=== PATIENT | male | born 1975 | race Caucasian/White ===

== ENCOUNTER → 2020-04-08 09:32 | Outpatient (CLI) | payer BC, SELFPAY ==
--- NOTE | 2020-04-08 09:39 | RAD_ITS ---
CLINICAL HISTORY: Male, 45 years old. Left hip pain. PROCEDURE: ARTHROGRAM - LEFT HIP CONSENT: The procedure as well as the benefits and possible complications including infection and bleeding were explained to the patient. Informed consent was obtained. FLUOROSCOPY TIME (if supplied): (18 seconds) minutes/seconds. Injection Information: 10 cc of dilute MRI contrast. Number of images obtained: 1 TECHNIQUE: (All elements of maximal sterile barrier technique followed, including US elements as applicable) The patient was in the supine position. The overlying skin was prepped and draped in the usual sterile fashion. Following local anesthetic application and under direct fluoroscopic guidance, a 22-gauge spinal needle was placed into the left hip joint. 2 cc of [id number]-300 was injected for confirmation. Following this, 10 cc of dilute MRI contrast was injected. The patient tolerated the procedure well. RAD/Arthrogram Hip IMPRESSION: Successful left hip arthrogram for MRI examination. The patient tolerated the procedure well. Electronically Signed: Brian Lilly, at 10:46 EDT , Service support ,
--- NOTE | 2020-04-08 10:29 | MRI_ITS ---
STUDY: MRI LEFT HIP ARTHROGRAM REASON FOR EXAM: Male, 45 years old. Pain. TECHNIQUE: Standardized fat and water weighted pulse sequences were obtained in all 3 orthogonal planes following the intra-articular administration of contrast. COMPARISON: None. FINDINGS: There is moderate articular narrowing of the hip joint, with greater than 50% loss of the hyaline cartilage. There is lateral osteoarthritic spurring of the acetabular rim with edema and cyst or cortical erosion of the weight bearing articular surface of the acetabulum. Tears of the anterior superior and anterior labrum, series 5 images 16/30 through . There is mild lateral osteoarthritic spurring of the femoral head. Normal femoral neck and intratrochanteric region. There is no demonstrated fracture. Normal gluteus minimus, medius and iliopsoas tendons and distal insertions. There is no trochanteric, iliopsoas or iliopectineal bursitis. Normal superior and inferior pubic rami. Normal pubic symphysis. Normal ischial tuberosity. Normal origin of the hamstring tendons. Normal visualized iliac wing, sacroiliac joint, and sacral ala. Normal visualized soft tissue structures of the pelvis. MRI/Lower Ext/Jt Only/W Contrast IMPRESSION: Degenerative changes with tear of the acetabular labrum. Electronically Signed: Bhupinder Urias MD at 12:05 EDT , Service support ,
== END ==
LOC: RAD 09:37
PROVIDERS: PCP Family Medicine; Referring Provider Physician Assistant Surgical; Visit Provider Physician Assistant Surgical
DX: M25.852 Other specified joint disorders, left hip (principal)
CPT/HCPCS: 27093; 73525; 73722; A9575; Q9967

== ENCOUNTER → 2022-07-17 | Outpatient (CLI) | payer BC, SELFPAY ==
--- NOTE | 2022-07-17 15:55 | RAD_ITS ---
STUDY: X-RAY - LUMBAR SPINE REASON FOR EXAM: Male, 47 years old. DEGENERATION -- AP LAT TECHNIQUE: XR Spine Lumbar 2 or 3 Views COMPARISON: None FINDINGS: Normal lumbar lordosis. There is no substantial scoliosis. There is a normal alignment of the vertebrae. There is multilevel endplate spondylosis of the lumbar vertebrae. There is multi-level degenerative disc disease with multi-level disc space narrowing. The soft tissue structures are unremarkable. RAD/Lumbar Spine 2 or 3 Views IMPRESSION: Degenerative changes of the spine, as detailed above. Electronically Signed: Jaiden Borja MD at 19:27 EST ,
== END | disposition home or self-care (01) ==
LOC: RAD 15:49
PROVIDERS: PCP Nurse Practitioner Family; Referring Provider Anesthesiology Pain Medicine; Visit Provider Anesthesiology Pain Medicine
DX: M51.37 Other intervertebral disc degeneration, lumbosacral region (principal); M51.26 Other intervertebral disc displacement, lumbar region
CPT/HCPCS: 72100

== ENCOUNTER → 2022-10-13 | Outpatient (CLI) | payer BC, SELFPAY ==
--- NOTE | 2022-10-13 06:35 | MRI_ITS ---
INDICATION: Low back pain. Pain in the right leg. EXAMINATION: MRI - MR Spine Lumbar W/O Contrast TECHNIQUE: Multiplanar and multisequence MR images of the lumbar spine. IV Contrast Dosage and Agent: None. COMPARISON: Radiographs 07/17/2022. FINDINGS: No fracture or acute or concerning osseous finding. Mild right scoliosis centered at L2 similar to previous. Sagittal alignment anatomic. Conus terminates at the level of the mid T12 vertebral body with normal contour and signal. Normal arborization of the cauda equina. At L1-2, small diffuse disc bulge and mild bilateral facet degeneration causes only mild narrowing of the spinal canal and foramina with no evidence of nerve root impingement. At L2-3, small central disc protrusion and mild bilateral facet degeneration causes no significant narrowing. At L3-4, diffuse disc bulge with small central protrusion and moderate bilateral facet degeneration causes only mild narrowing of the spinal canal and foramina. At L4-5, diffuse disc bulge with small central/left paracentral protrusion with underlying annular tear combines with mild bilateral facet degeneration to cause moderate narrowing of the bilateral subarticular zones. Disc abuts but does not displace the bilateral L5 nerve roots in the subarticular zones. Only mild foraminal narrowing. At L5-S1, broad-based disc bulge mildly narrows the spinal canal, abutting but not displacing the traversing S1 nerve roots in the subarticular zones. Disc and osteophyte extend into a moderately narrow the right foramen, abutting but not compressing the exiting right L5 nerve root. Only mild left foraminal and spinal canal narrowing. The paraspinal soft tissues are unremarkable. MRI/Spine Lumbar (Routine) IMPRESSION: Degenerative changes most prominent at L4-5 and L5-S1. Disc abuts but does not compress the bilateral L5 nerve roots in the subarticular zones of L4-5, and the bilateral S1 nerve roots in the subarticular zones of L5-S1. Disc and osteophyte also abuts but do not compress the exiting right L5 nerve root in the right L5-S1 foramen. Electronically Signed: Osman Lara MD at 8:04 EST Reading Location ID and State: 1954 [place] Tel , Service support ,
== END | disposition home or self-care (01) ==
LOC: MRI 07:55
PROVIDERS: PCP Nurse Practitioner Family; Referring Provider Anesthesiology Pain Medicine; Visit Provider Anesthesiology Pain Medicine
DX: M54.16 Radiculopathy, lumbar region (principal)
CPT/HCPCS: 72148

== ENCOUNTER → 2023-09-21 | Outpatient (CLI) | payer BC, SELFPAY ==
--- OUTSIDE RECORDS SUMMARY | 2023-09-21 07:14 | XMS RPT_ITS | CCD ---
Author Name Unknown Address [id number] [place] [address] Organization [facility] Care Team Providers Care Fifth Hand Name Role Phone JOSE GAMBINO Unavailable Unavailable JOSE GAMBINO Unavailable Unavailable PHYSICIAN, NONE Unavailable Unavailable JOSE GAMBINO Unavailable Unavailable JOSE GAMBINO Unavailable Unavailable PHYSICIAN, NONE Unavailable Unavailable Alexandro Garcia MD Unavailable RENETTA PETERSEN Primary Care Physician RENETTA PETERSEN Primary Care Physician RENETTA PETERSEN Primary Care Physician Medications Current Medications Medication Drug Class(es) Dates Sig (Normalized) Sig (Original) cyclobenzaprine hydrochloride 10 mg oral tablet (1 source) Muscle Relaxant Start: 07-14-2021 End: 07-21-2021 cyclobenzaprine 10 mg oral tablet Dose : 10 mg = 1 tab(s), Oral, TID, X 7 day(s), # 21 tab(s), 0 Refill(s), 07/21/21 16:46:00 EST, [facility]acy: [facility] Rib pain on left side, 188, cm, 07/14/21 16:12:00 EDT, Height, kg, 07/14/21 16:12:00 EDT, Dosing Weight Start Date: 07/14/21 Stop Date: 07/21/21 Status: Ordered gabapentin 300 mg oral capsule (3 sources) Anti-epileptic Agent Start: 03-06-2022 End: 09-02-2022 gabapentin 300 mg oral capsule Dose : 300 mg = 1 cap(s), Oral, TID, Patient to take 1 capsule at night for 7 days then twice a day for 7 days then increase to 3 times a day if tolerated, # 90 cap(s), 5 Refill(s), Pharmacy: [id number] Costochondritis, 188, cm, 03/06/22... Start Date: 03/06/22 Stop Date: 09/02/22 Status: Ordered ibuprofen 200 mg oral capsule (9 sources) Nonsteroidal Anti-inflammatory Drug Start: 12-08-2020 ibuprofen 200 mg oral capsule Dose : 400 mg = 2 cap(s), Oral, q4h, PRN as needed for pain, # 120 cap(s), 0 Refill(s) Start Date: 12/08/20 Status: Ordered lisinopril 20 mg oral tablet (4 sources) Angiotensin Converting Enzyme Inhibitor Start: 12-04-2021 lisinopril 20 mg oral tablet Dose : 20 mg = 1 tab(s), Oral, qDay, # 30 tab(s), 1 Refill(s), Pharmacy: [id number] [place] [address]., 188, cm, 11/23/21 14:36:00 EDT, Height, kg, 11/23/21 14:36:00 EDT, Dosing Weight Start Date: 12/04/21 Status: Ordered Problems Active Problems Problem Classification Problem Date Documented Da te Episodic/Chronic Abdominal hernia (10 sources) Left inguinal hernia ; Translations: [Left inguinal hernia (disorder)] Onset: 03-13-2017 03-13-2017 Episodic Abdominal pain (13 sources) Left upper quadrant pain 08-01-2021 Episodic Cardiac dysrhythmias (8 sources) Tachycardia 08-01-2021 Episodic Conditions associated with dizziness or vertigo (9 sources) Vertigo 12-08-2020 Episodic Essential hypertension (4 sources) Hypertensive disorder 08-21-2021 Chronic Headache; including migraine (9 sources) Headache 12-08-2020 Episodic Nonspecific chest pain (8 sources) Chest discomfort 08-01-2021 Episodic Osteoarthritis (1 source) Unilateral primary osteoarthritis, left hip; Translations: [Unilateral primary osteoarthritis, left hip] Onset: 04-22-2020 04-22-2020 Chronic Other bone disease and musculoskeletal deformities (3 sources) Costal chondritis 02-13-2022 Episodic Other injuries and conditions due to external causes (9 sources) Injury of shoulder region 01-16-2016 Episodic Other lower respiratory disease (8 sources) Dyspnea 08-01-2021 Episodic Other lower respiratory disease (3 sources) Rib pain 02-13-2022 Episodic Other nervous system disorders (3 sources) 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 Residual codes; unclassified (9 sources) Chronic back pain 02-09-2020 Episodic Spondylosis; intervertebral disc disorders; other back problems (11 sources) Prolapsed lumbar intervertebral disc; Translations: [Degeneration of lumbar intervertebral disc] Onset: 01-01-2019 01-01-2019 Chronic Past or Other Problems Problem Classification Problem Date Documented Da te Episodic/Chronic Spondylosis; intervertebral disc disorders; other back problems (2 sources) Spinal stenosis of lumbar region; Translations: [Low back pain] Onset: 01-01-2019 01-01-2019 Episodic Unclassified (1 source) Problem Results Test Name Value Interpretation Reference Range Facil ity Vital Signs Date Time Vital Sign Value Performing Clinician Facility 03-20-2022 07:34-0400 Diastolic blood pressure 100 mm[Hg] TREVOR NARVAEZ MD [facility] 03-20-2022 07:34-0400 Heart rate 85 /min TREVOR NARVAEZ MD [facility] 03-20-2022 07:34-0400 Respiratory rate 16 /min TREVOR NARVAEZ MD [facility] 03-20-2022 07:34-0400 Systolic blood pressure 136 mm[Hg] TREVOR NARVAEZ MD [facility] 03-20-2022 07:17-0400 Body height 188 cm TREVOR NARVAEZ MD [facility] 03-20-2022 07:17-0400 Body weight 100 kg TREVOR NARVAEZ MD [facility] 03-20-2022 07:15-0400 Body temperature 97.7 [degF] TREVOR NARVAEZ MD [facility] 03-20-2022 07:15-0400 Diastolic blood pressure 100 mm[Hg] TREVOR NARVAEZ MD [facility] 03-20-2022 07:15-0400 Heart rate 77 /min TREVOR NARVAEZ MD [facility] 03-20-2022 07:15-0400 Respiratory rate 16 /min TREVOR NARVAEZ MD [facility] 03-20-2022 07:15-0400 Systolic blood pressure 124 mm[Hg] TREVOR NARVAEZ MD [facility] 03-20-2022 07:10-0400 Body height 188 cm TREVOR NARVAEZ MD [facility] 03-20-2022 07:10-0400 Body temperature 98.06 [degF] TREVOR NARVAEZ MD [facility] 03-20-2022 07:10-0400 Body weight 103.5 kg TREVOR NARVAEZ MD [facility] 03-20-2022 07:10-0400 Diastolic blood pressure 71 mm[Hg] TREVOR NARVAEZ MD [facility] 03-20-2022 07:10-0400 Heart rate 87 /min TREVOR NARVAEZ MD [facility] 03-20-2022 07:10-0400 Respiratory rate 16 /min TREVOR NARVAEZ MD [facility] 03-20-2022 07:10-0400 Systolic blood pressure 101 mm[Hg] TREVOR NARVAEZ MD [facility] NEGATED: Cinthya [id number] 13:53-0400 BMI (Body Mass Index) 28.35 kg/m2 [facility]: NEGATED: Highlighted [id number] 13:53-0400 Body weight 99.79 kg [facility] Work Phone: NEGATED: Highlighted [id number] 13:53-0400 Body weight 100 kg [facility] Work Phone: NEGATED: Highlighted [id number] 13:53-0400 Heart rate 2+ [facility] Work Phone: NEGATED: Highlighted [id number] 13:53-0400 Height 187.96 cm [facility] Work Phone: NEGATED: Highlighted [id number] 13:53-0400 Height 188 cm [facility] Work Phone: Encounters Encounter Date Encounter Type Care Provider Facility Start: 04-17-2022 End: 04-17-2022 Patient encounter procedure TREVOR NARVAEZ MD [facility] Start: 03-20-2022 End: 03-20-2022 Minor Procedure TREVOR NARVAEZ MD [facility] Start: 03-06-2022 End: 03-06-2022 Patient encounter procedure TREVOR NARVAEZ MD [facility] Start: 11-10-2021 End: 11-10-2021 Patient encounter procedure SADE AREVALO MD [facility] Start: 08-11-2021 End: 08-11-2021 Patient encounter procedure RENETTA SINGH MOTOR TEACHER[employer]RAZZ[employer] FINISHER [facility] Start: 08-08-2021 End: 08-08-2021 Patient encounter procedure RENETTA SINGH MOTOR TEACHER[employer]ZZ[employer] FINISHER [facility] Start: 08-07-2021 End: 08-07-2021 Patient encounter procedure RENETTA SINGH MOTOR TEACHER[employer] FINISHER [facility] Start: 08-02-2021 End: 08-02-2021 Patient encounter procedure RENETTA SINGH MOTOR TEACHER[employer]RAZZ[employer] FINISHER [facility] Start: 07-14-2021 End: 07-14-2021 Patient encounter procedure LOTTIE CHATTERJEE MOTOR TEACHER[employer]RAZZ[employer] FINISHER [facility] Start: 04-22-2020 End: 04-22-2020 Patient encounter procedure Alexandro Garcia MD Work Phone: [facility] Work Phone: Start: 03-21-2017 Ambulatory JOSE GAMBINO Facility:[facility] Start: 03-13-2017 End: 03-14-2017 [facility] Facility:[facility] [place] Procedures Date Procedure Procedure Detail Performing Clinician Start: 03-20-2022 PM Intercostal Nerve Block - Single SN 1 TREVOR NARVAEZ MD Plan of Treatment Date Care Activity Detail Author Start: 04-22-2020 End: 04-22-2020 Appointment Appointment [facility] Work Phone: Immunizations Immunization Date Immunization Notes Care Provider Fa cilirosalba 01-23-2021 SARS-CoV-2 (COVID-19 ) [id number] vaccine TREVOR NARVAEZ MD [facility] Payers Date Payer Category Payer Private Health Insurance [id number] Social History Date Type Detail Facility Start: 04-22-2020 End: 04-22-2020 Assertion Unknown if ever smoked [facility] Work Phone: Start: 02-09-2020 Never smoked t obacco (finding) [facility] Sex Assigned At Male [facility] Functional Status Date Assessment Result Facility 03-20-2022 Functional Status Awake [facility] Mental Status Date Assessment Result Facility 03-20-2022 Mental Status Orientation Asse ssment Oriented x 4 [facility] Clinical Notes 07-14-2021 to 03-20-2022 RadiologyRadiologyRadiologyRadiologyRadiologyRadiologyRadiologyRadiology Note Date & Type Note Facility 03-20-2022 History and physical note Date of Service 03/20/22 History and Physical Update I have examined the patient; reviewed the History and Physical and there are no changes to the History and Physical unless noted below. Digitally Signed by TREVOR NARVAEZ MD on 03/20/2022 07:31 AM [facility] 11-07-2021 Evaluation + Plan note Future Scheduled TestsNM Hepatobiliary Duct System Imaging 11/07/21XR Ribs 2 Views Left/PA Chest (AO) 07/14/21 [facility] 08-02-2021 Evaluation + Plan note Future Scheduled TestsNM Hepatobiliary Duct System Imaging 08/02/21NM Myocardial Spect Rest/Stress 08/01/21XR Ribs 2 Views Left/PA Chest (AO) 07/14/21 [facility] 07-14-2021 Evaluation + Plan note Future Scheduled TestsXR Ribs 2 Views Left/PA Chest (AO) 07/14/21 [facility] Evaluation + Plan note Future Appointments Appointment Date:07/31/2021 02:05:00 PM Scheduled Provider:CABRERA METZ DO Location:[facility] Appointment Type:PC OV Future Scheduled TestsXR Ribs 2 Views Left/PA Chest (AO) 07/14/21 [facility] Evaluation + Plan note Future Appointments Appointment Date:08/08/2021 08:45:00 AM Scheduled Provider: Location:[facility] Appointment Type:NM Myocardial Spect Rest/Stress (AH/AO) Future Scheduled TestsNM Myocardial Spect Rest/Stress 08/08/21XR Ribs 2 Views Left/PA Chest (AO) 07/14/21 [facility] Evaluation + Plan note Future Appointments Appointment Date:08/09/2021 10:15:00 AM Scheduled Provider:MELANY MORE JR, MD Location: [place] Appointment Type: CHART SNATCHER Future Scheduled TestsXR Ribs 2 Views Left/PA Chest (AO) 07/14/21 [facility] Evaluation + Plan note Future Appointments Appointment Date:08/21/2021 02:15:00 PM Scheduled Provider:RENETTA SINGH Location:[facility] Appointment Type:PC OV Future Scheduled TestsXR Ribs 2 Views Left/PA Chest (AO) 07/14/21 [facility] Evaluation + Plan note Future Appointments Appointment Date:04/18/2022 08:00:00 AM Scheduled Provider:PERNELL REYNAGA APRN-ANJELICA Location:[facility] PM Appointment Type:PM OV Future Scheduled TestsXR Ribs 2 Views Left/PA Chest (AO) 07/14/21 [facility] Hospital course Narrative No data available for this section [facility] Hospital Discharge instructions No data available for this section [facility] Progress note No data available for this section [facility] Summary Purpose Family History No Family History Records FoundThere may be information available, but it has not been provided by the sender.No Family History Records Found Advance Directives No Advanced Directives Records FoundThere may be information available, but it has not been provided by the sender.No Advanced Directives Records Found Chief Complaint Chief Complaint Description Start Date left hip pain Preliminary chief co mplaint data, not yet signed by the author as of Instructions Instruction Description Start Date CompletedPatient advised to follow-up with Primary Care Physician for BMI management. Assessments There may be information available, but it has not been provided by the sender. Review of System There may be information available, but it has not been provided by the sender. History of Present Illness There may be information available, but it has not been provided by the sender. Additional Source Comments (unrecognized sect ion and content) No Status Records FoundNo Status Records Found INFORMATION SOURCE (unrecogn ized section and content) DATE CREATED AUTHOR AUTHOR'S ORGANIZ ATION 04/23/2022 [facility] ([place]) Reason for Visit (unrecogniz ed section and content) Care Team (unrecognized sect ion and content) Care Team Personnel Name: RENETTA SINGH Position: P4 Advanced Practice Nurse Med Service: Active Provider Member Role: Primary Care Physician Address: Address: [address] [place] [address] Care Team Related Persons Name: NONE, Name: TAHMINA CARLISLE Address: [facility] Address: Home [address] [place] [phone] [place] Name: GURINDER CARLISLE Address: [address] [phone] [place] Care Team Personnel Name: RENETTA SINGH Position: P4 Advanced Practice Nurse Med Service: Active Provider Member Role: Primary Care Physician Address: Address: [address] [place] [address] Care Team Related Persons Name: NONE, Name: TAHMINA CARLISLE Address: [facility] Address: Home [address] [place] [phone] [place] Name: GURINDER CARLISLE Address: Home [address] [place] [phone] [place] Care Team Personnel Name: RENETTA SINGHTERRAZZO FINISHER Position: P4 Advanced Practice Nurse Med Service: Active Provider Member Role: Primary Care Physician Address: Address: [address] [facility] [place], [place] [address] Care Team Related Persons Name: NONE, Name: TAHMINA CARLISLE Lizabeth Address: [facility] Address: [address] [phone] Name: GURINDER CARLISLE Address: [address] [phone] FOR RECORDS PERTAINING TO PATIENTS WHO ARE OR HAVE BEEN ENROLLED IN A CHEMICAL DEPENDENCY/SUBSTANCEABUSE PROGRAM, SOME INFORMATION MAY BE OMITTED. This clinical summary was aggregated from multiple sources. Caution should be exercised in using it in the provision of clinical care. This summary normalizes information from multiple sources, and as a consequence, information in this document may materially change the coding, format and clinical context of patient data. In addition, data may be omitted in some cases. CLINICAL DECISIONS SHOULD BE BASED ON THE PRIMARY CLINICAL RECORDS. [facility]. provides no warranty or guarantee of the accuracy or completeness of information in this document.
--- NOTE | 2023-09-21 07:29 | MRI_ITS ---
EXAM: MR LUMBAR SPINE WITHOUT INTRAVENOUS CONTRAST CLINICAL INDICATION: pain, radiculopathy rt leg, years, worsening, hx of injections, please compare to prior mri TECHNIQUE: Multiplanar and multisequence MR images of the lumbar spine without intravenous contrast. COMPARISON: MRI lumbar spine, 10/13/2022 and lumbar spine radiographs, 08/26/2023. FINDINGS: VERTEBRAE: No fracture. No evidence of spondylolysis. No spondylolisthesis. Multilevel facet arthrosis and multilevel endplate osteophytosis. 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 No focal or diffuse marrow space signal abnormality. Multiple Schmorl''s nodes. There is preservation of the normal lumbar lordosis. SPINAL CORD: No significant abnormality. Normal position and signal intensity of the conus medullaris. SOFT TISSUES: No significant abnormality. DISCS/SPINAL CANAL/NEURAL FORAMINA: Multilevel disc height loss and disc desiccation. T11-T12: As seen on sagittal images only, there is a small disc herniation resulting in mild spinal canal stenosis. T12-L1: Mild spinal canal stenosis. No significant neural foraminal narrowing. No disc bulge or disc herniation. L1-L2: Disc bulge and moderate bilateral facet arthrosis. Congenitally short pedicles of T12 and L1 contributing to mild spinal canal stenosis and mild bilateral neural foraminal narrowing. L2-L3: Disc bulge with superimposed central disc herniation and severe bilateral facet arthrosis. Congenitally short pedicles contribute to mild spinal canal stenosis and mild bilateral neural foraminal narrowing. L3-L4: Central disc herniation superimposed upon a disc bulge similar to the prior examination. Severe bilateral facet arthrosis with ligamentum flavum thickening. Congenitally short pedicles of L3 and L4 contribute to mild to moderate spinal canal stenosis and moderate bilateral neural foraminal narrowing, right greater than left. There is abutment without distinct impingement of the traversing bilateral L4 nerve roots. No foraminal nerve root impingement. L4-L5: Small central disc herniation superimposed upon a disc bulge and moderate bilateral facet arthrosis. Mild spinal canal stenosis and moderate right greater than left neural foraminal narrowing. Abutment without definite impingement of the bilateral traversing L5 nerve roots and abutment without impingement of the right foraminal L4 nerve root. L5-S1: Disc height loss and disc desiccation. Central to left subarticular disc herniation superimposed upon a disc bulge and moderate bilateral facet arthrosis. Mild spinal canal stenosis, severe right neural foraminal narrowing, moderate left neural foraminal narrowing. Abutment without impingement of the left S1 nerve root. Impingement of the right foraminal L5 nerve root. MRI/Spine Lumbar (Routine) IMPRESSION: Multilevel congenital and degenerative spinal canal and neural foraminal stenosis, worst at L3-L4 through L5-S1. Impingement of the right L5 nerve root at L5-S1. Abutment without definite impingement of the bilateral L4, left L5, and left S1 nerve roots. Electronically Signed: Craig Barragan DO at 16:21 EST ,
== END | disposition home or self-care (01) ==
PROVIDERS: PCP Nurse Practitioner Family; Referring Provider Orthopaedic Surgery; Visit Provider Orthopaedic Surgery
DX: M54.17 Radiculopathy, lumbosacral region (principal); M51.36 Other intervertebral disc degeneration, lumbar region; M51.37 Other intervertebral disc degeneration, lumbosacral region
CPT/HCPCS: 72148

== ENCOUNTER → 2024-12-09 | Outpatient (CLI) | payer BC, SELFPAY ==
[2024-12-09 16:42] LABS: Cholesterol 270 mg/dL (<=200); High Density Lipoprotein 57 mg/dL; Low Density Lipoprotein Calc. 191 mg/dL; Triglycerides 111 mg/dL; Very Low Density Lipoprotein 22 mg/dL (5-40); cholesterol:hdl ratio screen 4.78
[2024-12-09 17:57] LABS: Anion Gap 14 (5-15); BUN 12 mg/dL (4-19); BUN/Creat Ratio 12.6 RATIO (10-20); Calcium,Total 10.1 mg/dL (7.6-11.0); Carbon Dioxide 26.1 mmol/L (21.0-32.0); Chloride 99 mmol/L (98-108); Creatinine, Serum 0.94 mg/dL (0.70-1.20); EST Glomerular Filtration Rate 98 (>60); Glucose 73 mg/dL (70-99); Potassium 3.8 mmol/L (3.3-5.1); Sodium Level 139 mmol/L (133-145)
== END | disposition home or self-care (01) ==
LOC: MFPLAB 08:03
PROVIDERS: PCP Nurse Practitioner Family; Referring Provider Family Medicine; Visit Provider Family Medicine
DX: Z00.00 Encounter for general adult medical examination without abnormal findings (principal)
CPT/HCPCS: 36415; 80048; 80061

== ENCOUNTER → 2025-03-11 | Outpatient (CLI) | payer BC, SELFPAY ==
[2025-03-11 10:53] LABS: Anion Gap 11 (5-15); BUN 9 mg/dL (4-19); BUN/Creat Ratio 10.3 RATIO (10-20); Calcium,Total 9.2 mg/dL (7.6-11.0); Carbon Dioxide 26.0 mmol/L (21.0-32.0); Chloride 101 mmol/L (98-108); Cholesterol 199 mg/dL (<=200); Glucose 89 mg/dL (70-99); Low Density Lipoprotein Calc. 135 mg/dL; Potassium 3.8 mmol/L (3.3-5.1); Triglycerides 89 mg/dL; Very Low Density Lipoprotein 18 mg/dL (5-40); cholesterol:hdl ratio screen 4.27
== END | disposition home or self-care (01) ==
LOC: MFPLAB 08:18
PROVIDERS: PCP Nurse Practitioner Family; Referring Provider Family Medicine; Visit Provider Family Medicine
DX: E78.5 Hyperlipidemia, unspecified (principal)
CPT/HCPCS: 36415; 80048; 80061

== ENCOUNTER 2025-06-11 08:35 | Day surgery (SDC) | payer BC, SELFPAY ==
[2025-06-11] VITALS (7 sets, daily range): BP systolic 99–121; BP diastolic 73–96; PULSE 67–87; RESP 16; TEMP 36.1–36.2; O2SAT 97–99; BMI 23.8
--- NOTE | 2025-06-11 08:58 | PCM.PRE.AN2 ---
ASA Classification* ASA Classification ASA Classification: 2 Assessment & Plan Anesthesia* Anesthesia Assessment Anesthesia Assessment: Discussed sedation and/or anesthesia options, risks, benefits, and alternatives with patient/parents/legal guardian/POA. Questions invited. The patient/parents/legal guardian/POA seems to understand and agrees to proceed with anesthesia plan. Reviewed the physical assessment, medical history, allergy history and patient home medications list prior to surgery/procedure/anesthetic and documented any changes. Performed airway and anesthesia risk assessments. Anesthesia Type Anesthesia Type: MAC Anesthesia Focused Assessment* Airway Assessment Mouth opens: >3 cm Mallampati Score: II Labs Anesthesia Preop lab: CBC CHEMISTRY Potassium, (3.3-5.1) 3.8 mmol/L 03/11/25, 08:19 Sodium, (133-145) 138 mmol/L 03/11/25, 08:19 BUN, (4-19) 9 mg/dL 03/11/25, 08:19 Creatinine, (0.70-1.20) 0.91 mg/dL 03/11/25, 08:19 Glucose, (70-99) 89 mg/dL 03/11/25, 08:19 COAG Pre-Assessment Diagnosis/Proposed Procedure Planned Operative Procedure(s): CSCOPE OA Anesthesia History Anesthesia History - program management intern: Anesthesia History - program management intern Hx Hospitalization No 06/07/25 09:57 Any Problems With Anesthesia No 06/07/25 09:57 Cholinesterase deficiency No 06/07/25 09:57 You/Your Family Experience No 06/07/25 09:57 fever (hyperthermia) with Relationship Recent Exposure to Contagious Disease Does patient have nerve No 06/07/25 09:57 stimulator Patient instructed to have device shut off --Does patient have Pacemaker or ICD? When Was Last Pacemaker Check QUESTION #4 FULL TEXT: You/Your Family Experience fever (hyperthermia) with Anesthesia Last Oral Intake Last Oral intake: Last Oral Intake NPO since Meds taken in AM with sips of water? Meds patient instructed to take am of surgery PONV PONV - program management intern: PONV - program management intern Female No 06/07/25 09:57 HX of Motion Sickness No 06/07/25 09:57 HX of N/V After Surgery No 06/07/25 09:57 Non-Smoker No 06/07/25 09:57 Duration of Surgery greater No 06/07/25 09:57 than 60 minutes Number of Risk Factors PONV Score Height & Weight Height & Weight: Anesthesia: Height & Weight Height 6 ft 2 in 08/26/23 09:25 Respiratory Assessment Respiratory Assessment - program management intern: Respiratory Tract Infection Hx - program management intern Hx Respiratory Tract Infection No 06/07/25 09:57 STOP Sleep Apnea STOP Sleep Apnea - program management intern: STOP Sleep Apnea - program management intern Hx Hypertension Yes: NO MED FOR 1 YR 06/07/25 09:57 Hx Sleep Apnea No 06/07/25 09:57 CPAP BIPAP Do you snore loudly (louder No 06/07/25 09:57 than talking or can be heard Do you often feel tired/ No 06/07/25 09:57 fatigued/ sleepy during daytime? Has anyone observed you stop No 06/07/25 09:57 breathing during sleep? STOP Results Negative 06/07/25 09:57 QUESTION #5 FULL TEXT : Do you snore loudly (louder than talking or can be heard through closed doors)? 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 confused, unrespo /Reproduction History /Reproductive History - program management intern: /Reproductive Hx- program management intern Hx Now No 06/07/25 09:57 Gestational Age (in weeks): EDC: Hx Hx Para Hx Section SAB No 06/07/25 09:57 [facility] Medical History Wears glasses Alcohol use Arthritis Back pain Migraine headache Chewing tobacco use Hypertension Home Medications ?Medication ?Instructions ?Recorded ?Last Taken ?Type No Known/Unobtainable [No Known 08/12/13 Unknown History Home Medications] Allergy/AdvReac Type Severity Reaction Status Date / Time No Known Allergies Allergy Verified 06/07/25 09:56 Surgical History History of hip replacement History of hernia repair History of shoulder surgery History of appendectomy Social History Smoking Status: Current every day smoker tobacco type: smokeless tobacco Smokeless tobacco user: snuff and other what type of physical activity do you participate in: walking Review of Systems (Anesthesia) ROS Narrative System reviewed and no additional complaints, except as documented.
--- OUTSIDE RECORDS SUMMARY | 2025-06-11 08:59 | XMS RPT_ITS | CCD ---
Author Organization [facility] Care Team Providers Care Interpersonal Communications Professor Name Role Phone JOSE GAMBINO Unavailable Unavailable JOSE GAMBINO Unavailable Unavailable PHYSICIAN, NONE Unavailable Unavailable JOSE GAMBINO Unavailable Unavailable JOSE GAMBINO Unavailable Unavailable PHYSICIAN, NONE Unavailable Unavailable Alexandro Garcia MD Unavailable FRANCISCO WILKINSON-ANJELICA, HAWKEYE Primary Care Physician FRANCISCO WILKINSON-ANJELICA [place] Primary Care Physician FRANCISCO WILKINSON-ANJELICA, HAWKEYE Primary Care Physician Francisco ENGINEERING SUPERVISOR, ENGINEERING SUPERVISOR-C Fence Primary Care Provider [phone] Francisco WILSON, ENGINEERING SUPERVISOR-C Fence Referring Provider 1([facility] )[phone] Dr. Erick Thorne Attending Provider Dr. Sonido Elliott Attending Provider [phone] GRAZYNA PETERSEN Attending Unavail able FRANCISCO WILKINSON-ANJELICA [facility] Unavail able Francisco ENGINEERING SUPERVISOR-C, Fence Primary Care Provider 1([facility] )[phone] Dr. Ramon Coon MD Attending Provider [phone] Dr. Ramon Coon MD Referring Provider [phone] Francisco WILSON, Grazyna [facility] Unavailable Ramon Coon Referring Unavailable Ramon Coon Attending Unavailable Ramon Coon Referring Unavailable Ramon Coon Attending Unavailable Francisco WILSON, [facility] Unavailable Francisco WILSON, [facility] Unavailable Dakota Simmons Attending Unavailable Medications Current Medications Medication Drug Class(es) Dates Sig (Normalized) Sig (Original) cyclobenzaprine hydrochloride 10 mg oral tablet (1 source) Muscle Relaxant Start: 07-14-2021 End: 07-21-2021 cyclobenzaprine 10 mg oral tablet Dose : 10 mg = 1 tab(s), Oral, TID, X 7 day(s), # 21 tab(s), 0 Refill(s), 07/21/21 16:46:00 EST, Pharmacy: [address] Rib pain on left side, [...] tolerated, # 90 cap(s), 5 Refill(s), Pharmacy: [facility] Costochondritis, 188, cm, 03/06/22... Start Date: 03/06/22 [...] qDay, # 30 tab(s), 1 Refill(s), Pharmacy: [address] 188, cm, 11/23/21 14:36:00 EDT, Height, kg, 11/23/21 14:36:00 EDT, Dosing Weight Start Date: 12/04/21 Status: Ordered Start: 09-04-2021 lisinopril 20 mg oral tablet Dose : 20 mg = 1 tab(s), Oral, qDay, # 30 tab(s), 1 Refill(s), [facility]: [facility] 188, cm, 08/21/21 14:10:00 EST, Height, kg, 08/21/21 14:10:00 EST, Dosing Weight Start Date: 09/04/21 Status: Ordered meloxicam 15 mg oral tablet (1 source) Nonsteroidal Anti-inflammatory Drug Start: 07-14-2021 End: 07-28-2021 meloxicam 15 mg oral tablet Dose : 15 mg = 1 tab(s), Oral, qDay, # 14 tab(s), 0 Refill(s), [facility]: [facility] Rib pain on left side, 188, cm, 07/14/21 16:12:00 EDT, Height, kg, 07/14/21 16:12:00 EDT, Dosing Weight Start Date: 07/14/21 Stop Date: 07/28/21 Status: Ordered methylPREDNISolone 4 mg oral tablet (1 source) Corticosteroid Start: 04-17-2022 End: 04-23-2022 Medrol Dosepak 4 mg oral tablet 1 packet(s), Oral, qDay, as directed on package labeling, X 6 day(s), # 21 tab(s), 0 Refill(s), 04/23/22 8:57:00 EDT, [facility]: [id number], Intercostal neuralgia, 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 MAX 8 tab(s)/24hrs, # 9 tab(s), 0 Refill(s), [facility]: [facility] 188, cm, 12/08/20 10:28:00 EDT, Height, kg, 12/08/20 10:28:00... Start Date: 12/08/20 Status: Ordered Problems Active Problems Problem Classification Problem Date Documented Da te Episodic/Chronic Abdominal hernia (10 sources) Left inguinal hernia ; Translations: [Left inguinal hernia (disorder)] Onset: 03-13-2017 03-13-2017 Episodic Abdominal pain (13 sources) Left upper quadrant pain 08-01-2021 Episodic Cardiac dysrhythmias (8 sources) Tachycardia 08-01-2021 Episodic Conditions associated with dizziness or vertigo (9 sources) Vertigo 12-08-2020 Episodic Disorders of lipid metabolism (1 source) Hyperlipidemia, unspecified; Translations: [Hyperlipidemia, unspecified] Onset: 03-18-2025 Chronic Essential hypertension (4 sources) Hypertensive disorder 08-21-2021 [...] Spondylosis; intervertebral disc disorders; other back problems (19 sources) Prolapsed lumbar intervertebral disc; Translations: [Degeneration of lumbar intervertebral disc] Onset: 01-01-2019 01-01-2019 Chronic Comment on above: L1 Spondylosis; intervertebral disc disorders; other back problems (17 sources) Spinal stenosis of lumbar region; Translations: [Low back pain] Onset: 01-01-2019 01-01-2019 Episodic Unclassified (1 source) Unknown / UNK(Unknown) Onset: 03-13-2017 Unclassified (16 sources) Patient encounter status 08-01-2021 Past or Other Problems Problem Classification Problem Date Documented Da te Episodic/Chronic Unclassified (1 source) Problem Results Test Name Value Interpretation Reference Range Facility Anion gap in Serum or Plasma Ordered By: Ramon Coon on 03-11-2025 Anion gap [Moles/Vol] 11 mmol/L 5- [facility] BUN/creatinine ratioOrdered By: Ramon Coon on 03-11-2025 Urea nitrogen/Creatinine [Mass ratio] 10.3 mg/mg - [facility] Basic Metabolic Profile (BMP )on 03-11-2025 BUN/CRE 10.3 RATIO Normal 06-28 [facility] Comment on above: Order Comment: Order Date: 12/10/24 Order Info: 0667-1 - BMP Order Info: [id number] - LIPID Performed By: #### L 500.2500 #### [facility] [address] [place], [place], [id number] Calcium [Mass/Vol] 9.2 mg/dL Normal 7.6-11.0 [facility] Comment on above: Order Comment: Order Date: 12/10/24 Order Info: 0667-1 - BMP Order Info: [id number] - LIPID Performed By: #### L 500.2500 #### [facility] [address] [place], [address] Chloride [Moles/Vol] 101 mmol/L Normal 98-108 [facility] Comment on above: Order Comment: Order Date: 12/10/24 Order Info: [id number] - BMP Order Info: [id number] - LIPID Performed By: #### L 500.2500 #### [facility] [address] [place], [place], [id number] CO2 [Moles/Vol] 26.0 mmol/L Normal 21.0-32.0 [facility] Comment on above: Order Comment: Order Date: 12/10/24 Order Info: [id number]- - BMP Order Info: [id number] - LIPID Performed By: #### L 500.2500 #### [facility] [address] [place], [address] Creatinine [Mass/Vol] 0.91 mg/dL Normal 0.70-1.20 [facility] Comment on above: Order Comment: Order Date: 12/10/24 Order Info: 666-09 - [facility] Order Info: [id number] - LIPID Performed By: #### L 500.2500 #### [facility] [address] [place], [address] GAP 11 Normal 5-15 [facility] Comment on above: Order Comment: Order Date: 12/10/24 Order Info: [id number] - [facility] Order Info: [id number] - LIPID Performed By: #### L 500.2500 #### [facility] [address] [place], [address] GFR/1.73 sq M.predicted among non-blacks MDRD (S/P/Bld) [Vol rate/Area] 102 mL/min/{1.73_m2} Normal >60 [facility] Comment on above: Order Comment: Order Date: 12/10/24 Order Info: 666-09 - [facility] Order Info: [id number] - LIPID Result Comment: mL/m in/1.73m2 CKD-EPI Creatinine Equation (2020) Performed By: #### L 500.2500 #### [facility] [address] [place], [address] Glucose [Mass/Vol] 89 mg/dL Normal 70-99 [facility] Comment on above: Order Comment: Order Date: 12/10/24 Order Info: 666-09 - [facility] Order Info: [id number] - LIPID Performed By: #### L 500.2500 #### [facility] [address] [place], [address] Potassium [Moles/Vol] 3.8 mmol/L Normal 3.3-5.1 [facility] Comment on above: Order Comment: Order Date: 12/10/24 Order Info: [id number] - BMP Order Info: [id number] - LIPID Performed By: #### L 500.2500 #### [facility] [address] [place], [place], [address] Sodium [Moles/Vol] 138 mmol/L Normal 133-145 [facility] Comment on above: Order Comment: Order Date: 12/10/24 Order Info: [id number] - BMP Order Info: [id number] - LIPID Performed By: #### L 500.2500 #### [facility] [address] [place], [place], [address] Urea nitrogen [Mass/Vol] 9 mg/dL Normal 4-19 [facility] Comment on above: Order Comment: Order Date: 12/10/24 Order Info: [id number] - BMP Order Info: [id number] - LIPID Performed By: #### L 500.2500 #### [facility] [address] [place], [place], [address] Calculated very low density lipoprotein (VLDL) cholesterol measurementOrdered By: Ramon Coon on 03-11-2025 Calculated very low density lipoprotein (VLDL) cholesterol measurement 18 mg/dL 5-40 [facility] Carbon dioxide, total [Moles /volume] in Central venous bloodOrdered By: Ramon Coon on 03-11-2025 CO2 [Moles/Vol] 26.0 mmol/L 21.0-32.0 [facility] Chloride assayOrdered By: Gera Coon on 03-11-2025 Chloride [Moles/Vol] 101 mmol/L 98-108 [facility] Glomerular filtration rate ( GFR) estimation/1.73 sq m using serum, plasma, or whole bOrdered By: Ramon Coon on 03-11-2025 GFR/1.73 sq M.predicted among non-blacks MDRD (S/P/Bld) [Vol rate/Area] 102 mL/min/{1.73_m2} >60 [facility] Comment on above: mL/min/1.73m2 CKD-EP I Creatinine Equation (2020) LDL calc ser/plasOrdered By: Ramon Coon on 03-11-2025 Cholesterol in LDL [Mass/Vol] 135 mg/dL [facility] Comment on above: Lmtlgsjuxs=507-398 m g/dL & Higher Epma=623 mg/dL or greater Lipid Profileon 03-11-2025 CHOL:HDL 4.27 Normal [facility] Comment on above: Order Comment: Order Date: 12/10/24 Order Info: 0667-1 - BMP Order Info: [id number] - LIPID Performed By: #### L 500.4100 #### [facility] [address] [place], [place], [id number] (089) Cholesterol [Mass/Vol] 199 mg/dL Normal <=200 [facility] Comment on above: Order Comment: Order Date: 12/10/24 Order Info: 0667-1 - BMP Order Info: [id number] - LIPID Result Comment: Chol esterol level, Desirable <200 mg/dL Borderline high cholesterol 200-239 mg/dL High cholesterol >=240 mg/dL Recommendations of the NCEP Adult Treatment Panel for the following risk-cutoff thresholds for the [place] population. Performed By: #### L 500.4100 #### [facility] [address] [place], [place], [id number] Cholesterol in HDL [Mass/Vol] 47 mg/dL Normal [facility] Comment on above: Order Comment: Order Date: 12/10/24 Order Info: 0667-1 - BMP Order Info: [id number] - LIPID Result Comment: Mona onal Cholesterol Education Program (NCEP) guidelines: <40 mg/dL: Low HDL-cholesterol (major risk factor for CHD) >= 60 mg/dL: High HDL-cholesterol (negative risk factor for CHD) HDL-cholesterol is affected by a number of factors, e.g. smoking, exercise, hormones, sex and age. Performed By: #### L 500.4100 #### [facility] [address] [place], [place], [id number] (205) Cholesterol in LDL [Mass/Vol] 135 mg/dL Normal [facility] Comment on above: Order Comment: Order Date: 12/10/24 Order Info: 0667-1 - [facility] Order Info: [id number] - LIPID Result Comment: Bord zwftdx=092-142 mg/dL Higher Zxzk=927 mg/dL or greater Performed By: #### L 500.4100 #### [facility] [address] [place], [place], [address] Cholesterol in VLDL [Mass/Vol] 18 mg/dL Normal 5-40 [facility] Comment on above: Order Comment: Order Date: 12/10/24 Order Info: 0667-1 - [facility] Order Info: [id number] - LIPID Performed By: #### L 500.4100 #### [facility] [address] [place], [place], [address] Triglyceride [Mass/Vol] 89 mg/dL Normal [facility] Comment on above: Order Comment: Order Date: 12/10/24 Order Info: 0667-1 - [facility] Order Info: [id number] - LIPID Result Comment: The drugs N-Acetylcysteine and Metamizole may falsely depress this assay. Normal range: <150 mg/dL Borderline High: 150-199 mg/dL High: 200-499 mg/dL Very High: >500 mg/dL Performed By: #### L 500.4100 #### [facility] [address] [place], [place], [address] Potassium measurement (mass/ volume)Ordered By: Ramon Coon on 03-11-2025 Potassium (Unsp spec) [Mass/Vol] 3.8 mmol/L 3.3-5.1 [facility] Screening total cholesterol/ high density lipoprotein (HDL) cholesterol ratioOrdered By: Ramon Coon on 03-11-2025 Cholesterol.total/Chol esterol in HDL [Mass ratio] 4.27 {ratio} [facility] Serum creatinine measurement (mass/volume)Ordered By: Ramon Coon on 03-11-2025 Creatinine [Mass/Vol] 0.91 mg/dL 0.70-1.20 [facility] Serum glucose measurement (m ass/volume)Ordered By: Ramon Coon on 03-11-2025 Glucose [Mass/Vol] 89 mg/dL 70-99 [facility] Serum or plasma calcium hsaina urement (mass/volume)Ordered By: Ramon Coon on 03-11-2025 Calcium [Mass/Vol] 9.2 mg/dL 7.6-11.0 [facility] Serum or plasma cholesterol in HDL measurement (mass/volume)Ordered By: Ramon Coon on 03-11-2025 Cholesterol in HDL [Mass/Vol] 47 mg/dL >40 [facility] Comment on above: National Cholesterol Education Program (NCEP) guidelines:<40 mg/dL: Low HDL-cholesterol (major risk factor for CHD)>= 60 mg/dL: High HDL-cholesterol (negative risk factor for CHD)HDL-cholesterol is affected by a number of factors, e.g. smoking, exercise, hormones, sex and age. Serum or plasma cholesterol measurement (mass/volume)Ordered By: Ramon Coon on 03-11-2025 Cholesterol [Mass/Vol] 199 mg/dL <201 [facility] Comment on above: Cholesterol level, D esirable <200 mg/dLBorderline high cholesterol 200-239 mg/dLHigh cholesterol >=240 mg/dLRecommendations of the NCEP Adult Treatment Panel for the following risk-cutoff thresholds for the [place] population. Serum or plasma urea nitroge n measurement (mass/volume)Ordered By: Ramon Coon on 03-11-2025 Urea nitrogen [Mass/Vol] 9 mg/dL 4-19 [facility] Sodium levelOrdered By: Ramon Coon on 03-11-2025 Sodium [Moles/Vol] 138 mmol/L 133-145 [facility] Triglycerides measurementOrd ered By: Ramon Coon on 03-11-2025 Triglyceride [Mass/Vol] 89 mg/dL <199 [facility] Comment on above: The drugs N-Acetylcy steine and Metamizole may falsely depress this assay. Normal range: <150 mg/dLBorderline High: 150-199 mg/dLHigh: 200-499 mg/dLVery High: >500 mg/dL Anion gap in Serum or Plasma Ordered By: Ramon Coon on 12-09-2024 Anion gap [Moles/Vol] 14 mmol/L 5-15 [facility] BUN/creatinine ratioOrdered By: Ramon Coon on 12-09-2024 Urea nitrogen/Creatinine [Mass ratio] 12.6 mg/mg 10-20 [facility] Basic Metabolic Profile (BMP )on 12-09-2024 BUN/CRE 12.6 RATIO Normal - [facility] Comment on above: Performed By: #### L 500.2500, L500.4100 #### [facility] [address] [place], [address] Calcium [Mass/Vol] 10.1 mg/dL Normal 7.6-11.0 [facility] Comment on above: Performed By: #### L 500.2500, L500.4100 #### [facility] [address] [place], [address] Chloride [Moles/Vol] 99 mmol/L Normal 98-108 [facility] Comment on above: Performed By: #### L 500.2500, L500.4100 #### [facility] [address] [place], [address] CO2 [Moles/Vol] 26.1 mmol/L Normal 21.0-32.0 [facility] Comment on above: Performed By: #### L 500.2500, L500.4100 #### [facility] [address] [place], [address] Creatinine [Mass/Vol] 0.94 mg/dL Normal 0.70-1.20 [facility] Comment on above: Performed By: #### L 500.2500, L500.4100 #### [facility] [address] [place], [address] GAP 14 Normal 5-15 [facility] Comment on above: Performed By: #### L 500.2500, L500.4100 #### [facility] [address] [place], [address] GFR/1.73 sq M.predicted among non-blacks MDRD (S/P/Bld) [Vol rate/Area] 98 mL/min/{1.73_m2} Normal >60 [facility] Comment on above: Result Comment: mL/m in/1.73m2 CKD-EPI Creatinine Equation (2020) Performed By: #### L 500.2500, L500.4100 #### [facility] [address] [place], [address] Glucose [Mass/Vol] 73 mg/dL Normal 70-99 [facility] Comment on above: Performed By: #### L 500.2500, L500.4100 #### [facility] [address] [place], [address] Potassium [Moles/Vol] 3.8 mmol/L Normal 3.3-5.1 [facility] Comment on above: Performed By: #### L 500.2500, L500.4100 #### [facility] [address] [place], [address] Sodium [Moles/Vol] 139 mmol/L Normal 133-145 [facility] Comment on above: Performed By: #### L 500.2500, L500.4100 #### [facility] [address] [place], [address] Urea nitrogen [Mass/Vol] 12 mg/dL Normal 4-19 [facility] Comment on above: Performed By: #### L 500.2500, L500.4100 #### [facility] [address] [place], [address] Calculated very low density lipoprotein (VLDL) cholesterol measurementOrdered By: Ramon Coon on 12-09-2024 Calculated very low density lipoprotein (VLDL) cholesterol measurement 22 mg/dL 5-40 [facility] VLDL Cholesterol 22 mg/dL -40 [facility] Carbon dioxide, total [Moles /volume] in Central venous bloodOrdered By: Ramon Coon on 12-09-2024 CO2 [Moles/Vol] 26.1 mmol/L 21.0-32.0 [facility] Chloride assayOrdered By: Gera Coon on 12-09-2024 Chloride [Moles/Vol] 99 mmol/L 98-108 [facility] GFR/1.73 sq M.predicted leora g non-blacks MDRD (S/P/Bld) [Vol rate/Area]Ordered By: Ramon Coon on 12-09-2024 Estimated GFR (MDRD) Non-Af Amer 98 >60 [facility] Comment on above: mL/min/1.73m2 CKD-EP I Creatinine Equation (2020) Glomerular filtration rate ( GFR) estimation/1.73 sq m using serum, plasma, or whole bOrdered By: Ramon Coon on 12-09-2024 GFR/1.73 sq M.predicted among non-blacks MDRD (S/P/Bld) [Vol rate/Area] 98 mL/min/{1.73_m2} >60 [facility] Comment on above: mL/min/1.73m2 CKD-EP I Creatinine Equation (2020) LDL calc ser/plasOrdered By: Ramon Coon on 12-09-2024 Cholesterol in LDL [Mass/Vol] 191 mg/dL [facility] Comment on above: Jbwzdygdax=090-418 m g/dL & Higher Kbek=588 mg/dL or greater LDL Cholesterol, Calculated 191 mg/dL [facility] Comment on above: Lkwykbnkvw=282-735 m g/dL & Higher Zruk=572 mg/dL or greater Lipid Profileon 12-09-2024 CHOL:HDL 4.78 Normal [facility] Comment on above: Performed By: #### L 500.2500, L500.4100 #### [facility] [address] [place], [place], [id number] Cholesterol [Mass/Vol] 270 mg/dL High <=200 [facility] Comment on above: Result Comment: Chol esterol level, Desirable <200 mg/dL Borderline high cholesterol 200-239 mg/dL High cholesterol >=240 mg/dL Recommendations of the NCEP Adult Treatment Panel for the following risk-cutoff thresholds for the [place] population. Performed By: #### L 500.2500, L500.4100 #### [facility] [address] [place], [address] Cholesterol in HDL [Mass/Vol] 57 mg/dL Normal [facility] Comment on above: Result Comment: Mona onal Cholesterol Education Program (NCEP) guidelines: <40 mg/dL: Low HDL-cholesterol (major risk factor for CHD) >= 60 mg/dL: High HDL-cholesterol (negative risk factor for CHD) HDL-cholesterol is affected by a number of factors, e.g. smoking, exercise, hormones, sex and age. Performed By: #### L 500.2500, L500.4100 #### [facility] [address] [place], [address] Cholesterol in LDL [Mass/Vol] 191 mg/dL Normal [facility] Comment on above: Result Comment: Bord rylxzq=665-913 mg/dL Higher Laxf=291 mg/dL or greater Performed By: #### L 500.2500, L500.4100 #### [facility] [address] [place], [address] Cholesterol in VLDL [Mass/Vol] 22 mg/dL Normal 5-40 [facility] Comment on above: Performed By: #### L 500.2500, L500.4100 #### [facility] [address] [place], [address] Triglyceride [Mass/Vol] 111 mg/dL Normal [facility] Comment on above: Result Comment: The drugs N-Acetylcysteine and Metamizole may falsely depress this assay. Normal range: <150 mg/dL Borderline High: 150-199 mg/dL High: 200-499 mg/dL Very High: >500 mg/dL Performed By: #### L 500.2500, L500.4100 #### [facility] [address] [place], [address] Potassium (Unsp spec) [Mass/ Vol]Ordered By: Ramon Coon on 12-09-2024 Potassium [Moles/Vol] 3.8 mmol/L 3.3-5.1 [facility] Potassium measurement (mass/ volume)Ordered By: Ramon Coon on 12-09-2024 Potassium (Unsp spec) [Mass/Vol] 3.8 mmol/L 3.3-5.1 [facility] Screening total cholesterol/ high density lipoprotein (HDL) cholesterol ratioOrdered By: Ramon Coon on 12-09-2024 Cholesterol.total/Chol esterol in HDL [Mass ratio] 4.78 {ratio} [facility] Serum creatinine measurement (mass/volume)Ordered By: Ramon Coon on 12-09-2024 Creatinine [Mass/Vol] 0.94 mg/dL 0.70-1.20 [facility] Serum glucose measurement (m ass/volume)Ordered By: Ramon Coon on 12-09-2024 Glucose [Mass/Vol] 73 mg/dL 70-99 [facility] Serum or plasma calcium shaina urement (mass/volume)Ordered By: Ramon Coon on 12-09-2024 Calcium [Mass/Vol] 10.1 mg/dL 7.6-11.0 [facility] Serum or plasma cholesterol in HDL measurement (mass/volume)Ordered By: Ramon Coon on 12-09-2024 Cholesterol in HDL [Mass/Vol] 57 mg/dL >40 [facility] Comment on above: National Cholesterol Education Program (NCEP) guidelines:<40 mg/dL: Low HDL-cholesterol (major risk factor for CHD)>= 60 mg/dL: High HDL-cholesterol (negative risk factor for CHD)HDL-cholesterol is affected by a number of factors, e.g. smoking, exercise, hormones, sex and age. Serum or plasma cholesterol measurement (mass/volume)Ordered By: Ramon Coon on 12-09-2024 Cholesterol [Mass/Vol] 270 mg/dL High <201 [facility] Comment on above: Cholesterol level, D esirable <200 mg/dLBorderline high cholesterol 200-239 mg/dLHigh cholesterol >=240 mg/dLRecommendations of the NCEP Adult Treatment Panel for the following risk-cutoff thresholds for the [place] population. Serum or plasma urea nitroge n measurement (mass/volume)Ordered By: Ramon Coon on 12-09-2024 Urea nitrogen [Mass/Vol] 12 mg/dL 4-19 [facility] Sodium levelOrdered By: Ramon Coon on 12-09-2024 Sodium [Moles/Vol] 139 mmol/L 133-145 [facility] Triglycerides measurementOrd ered By: Ramon Coon on 12-09-2024 Triglyceride [Mass/Vol] 111 mg/dL <199 [facility] Comment on above: The drugs N-Acetylcy steine and Metamizole may falsely depress this assay. Normal range: <150 mg/dLBorderline High: 150-199 mg/dLHigh: 200-499 mg/dLVery High: >500 mg/dL LABORATORYOrdered By: Alejandrina Rosa on 11-10-2021 Amylase [Catalytic activity/Vol] 44 U/L Invalid Interpretation Code 25 - 115 U/L AO ADM SS Basophil, Absolute 0.00 103/mcL Invalid Interpretation Code 0.00 - 0.19 10^3/mcL AO Auto Heme SS Basophils/100 WBC (Bld) 0.6 % Invalid Interpretation Code 0.0 - 2.5 % AO Auto Heme SS Eosinophil, Absolute 0.10 103/mcL Invalid Interpretation Code 0.00 - 0.40 10^3/mcL AO Auto Heme SS Eosinophils/100 WBC (Bld) 2.7 % Invalid Interpretation Code 0.0 - 7.0 % AO Auto Heme SS Erythrocyte distribution width (RBC) [Ratio] 13.3 % Invalid Interpretation Code 11.5 - 14.5 % AO Auto Heme SS ESR 15 minute reading (Bld) [Velocity] 5 mm/hr Invalid Interpretation Code 0 - 15 mm/hr AO Man Heme SS Hematocrit (Bld) [Volume fraction] 46.8 % Invalid Interpretation Code 42.0 - 52.0 % AO Auto Heme SS Hemoglobin (Bld) [Mass/Vol] 16.5 G/dL Invalid Interpretation Code 14.0 - 18.0 G/dL AO Auto Heme SS Lipase [Catalytic activity/Vol] 124 U/L Invalid Interpretation Code 73 - 393 U/L AO ADM SS Lymphocyte, Absolute 1.30 103/mcL Invalid Interpretation Code 0.77 - 3.85 10^3/mcL AO Auto Heme SS Lymphocytes/100 WBC (Bld) 28.9 % Invalid Interpretation Code 10.0 - 50.0 % AO Auto Heme SS MCH (RBC) [Entitic mass] 32.7 pg Invalid Interpretation Code 27.0 - 31.2 pg AO Auto Heme SS MCHC (RBC) [Mass/Vol] 35.3 G/dL Invalid Interpretation Code 31.8 - 35.4 G/dL AO Auto Heme SS MCV (RBC) [Entitic vol] 92.9 fL Invalid Interpretation Code 80.0 - 94.0 fL AO Auto Heme SS Monocyte, Absolute 0.30 103/mcL Invalid Interpretation Code 0.15 - 1.00 10^3/mcL AO Auto Heme SS Monocytes/100 WBC (Bld) 7.3 % Invalid Interpretation Code 1.7 - 13.0 % AO Auto Heme SS Neutrophil, Absolute 2.70 103/mcL Invalid Interpretation Code 2.85 - 6.16 10^3/mcL AO Auto Heme SS Neutrophils/100 WBC (Bld) 60.5 % Invalid Interpretation Code 37.0 - 80.0 % AO Auto Heme SS Platelet mean volume (Bld) [Entitic vol] 7.6 fL Invalid Interpretation Code 7.4 - 10.4 fL AO Auto Heme SS Platelets (Bld) [#/Vol] 234 103/mcL Invalid Interpretation Code 130 - 400 10^3/mcL AO Auto Heme SS RBC (Bld) [#/Vol] 5.04 106/mcL Invalid Interpretation Code 4.04 - 6.13 10^6/mcL AO Auto Heme SS WBC (Bld) [#/Vol] 4.50 103/mcL Invalid Interpretation Code 4.60 - 10.80 10^3/mcL AO Auto Heme SS LABORATORYOrdered By: Glenis Santamaria on 08-11-2021 Amylase [Catalytic activity/Vol] 37 U/L Invalid Interpretation Code 25 - 115 U/L AO ADM SS Clinical Summary: HMSPatient IDon 04-22-2020 GO Priya [facility] Work Phone: Clinical Summary: Outcome Campbell mmaryon 04-22-2020 pain intensity (Oswestry Pain Disability Index) 2 [facility] Work Phone: Youth DLA20 [id number] 2 Cr [facility] Work Phone: Youth DLA20 [id number] 1 Cr [facility] Work Phone: Youth DLA20 [id number] 2 Cr [facility] Work Phone: Youth DLA20 [id number] 3 Cr [facility] Work Phone: Youth DLA20 [id number] 2 Cr [facility] Work Phone: Youth DLA20 [id number] 12 Cr [facility] Work Phone: Youth DLA20 [id number] [phone] Cr [facility] Work Phone: Youth DLA20 [id number] 2 Cr [facility] Work Phone: Youth DLA20 [id number] 0 Cr [facility] Work Phone: diagnostic criteria for SLE #1 3 [facility] Work Phone: diagnostic criteria for SLE #10 3 [facility] Work Phone: diagnostic criteria for SLE #11 9 [facility] Work Phone: diagnostic criteria for SLE #12 15 [facility] Work Phone: diagnostic criteria for SLE #13 32.4 [facility] Work Phone: diagnostic criteria for SLE #14 50.8 [facility] Work Phone: diagnostic criteria for SLE #15 [phone] [facility] Work Phone: diagnostic criteria for SLE #2 3 [facility] Work Phone: diagnostic criteria for SLE #3 3 [facility] Work Phone: diagnostic criteria for SLE #4 4 [facility] Work Phone: diagnostic criteria for SLE #5 4 [facility] Work Phone: diagnostic criteria for SLE #6 3 [facility] Work Phone: diagnostic criteria for SLE #7 3 [facility] Work Phone: diagnostic criteria for SLE #8 4 [facility] Work Phone: diagnostic criteria for SLE #9 3 [facility] Work Phone: Clinical Summary: Data Submi tted by Patient in [place] 04-20-2020 #DEP CHLDRN Yes [facility] Work Phone: 3+ETOHDAILY less than 1 drink per day [facility] Work Phone: ASTHEHSZHOUS 2 floors [facility] Work Phone: Beta HCG ( test) Ql (U) 1 time per year [facility] Work Phone: BROTHERS A/D My brother(s)' health history is unknown [facility] Work Phone: DEBPCURRMED I am not taking any medications, vitamins or supplements. [facility] Work Phone: DEP ALG LIST I don't have any drug allergies.,I don't have any food allergies.,I don't have any environmental allergies. 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 [facility] Work Phone: DEP ETOH USE Yes [facility] Work Phone: DEP EXERCISE No [facility] Work Phone: DEP ORTOBUSE Yes [facility] Work Phone: DEP PMH Fractures [facility] Work Phone: DEP SH CSMO never smoker [facility] Work Phone: DEP SH MAST [facility] Work Phone: DEP SH OCCUP Consumer Relations [facility] Work Phone: DEP SURGERY Appendectomy, Hernia repair, Shoulder surgery other [facility] Work Phone: ETOHPERFRM beer [facility] Work Phone: FATHER A/D Alive [facility] Work Phone: MOTHER A/D Alive [facility] Work Phone: RLATNSHPINFR Self [facility] Work Phone: SWHOUTYPE house [facility] Work Phone: AOH MAIN OR Anesthesia Recor don 03-25-2017 AO MAIN OR Anesthesia Record Normal [facility] AOH MAIN OR Intraop Recordon 03-25-2017 AO MAIN OR Intraop Record Normal [facility] Depart Summaryon 03-25-2017 Depart Summary Normal [facility] Outpatient Patient Summaryon 03-25-2017 Outpatient Patient Summary Normal [facility] CBC (AO)on 03-13-2017 Basophils Auto #/vol (Bld) 0.10 10 3/mcL Normal 0.00-0.19 [facility] Comment on above: Performed By: #### C BCO ####[address] [address] Basophils/100 WBC Auto (Bld) 1.0 % Normal 0.0-2.5 [facility] Comment on above: Performed By: #### C BCO ####[address] [address] Eosinophils 0.10 10 3/mcL Normal 0.00-0.40 [facility] Comment on above: Performed By: #### C BCO ####[address] [address] Eosinophils/100 leukocytes 2.0 % Normal 0.0-7.0 [facility] Comment on above: Performed By: #### C BCO ####[address] [address] Erythrocyte distribution width Auto Ratio (RBC) 13.8 % Normal 11.5-14.5 [facility] Comment on above: Performed By: #### C BCO ####[address] [address] Erythrocytes (RBC) 5.00 10 6/mcL Normal 4.04-6.13 [facility] Comment on above: Performed By: #### C BCO ####[address] [address] Hematocrit (HCT) 44.2 % Normal 42.0-52.0 [facility] Comment on above: Performed By: #### C BCO ####[address] [address] Hemoglobin mass conc (Bld) 15.4 G/dL Normal 14.0-18.0 [facility] Comment on above: Performed By: #### C BCO ####[address] [address] Lymphocytes 1.50 10 3/mcL Normal 0.77-3.85 [facility] Comment on above: Performed By: #### C BCO ####[address] [address] Lymphocytes/100 leukocytes 24.7 % Normal 10.0-50.0 [facility] Comment on above: Performed By: #### C BCO ####[address] [address] MCH 30.7 pg Normal 27.0-31.2 [facility] Comment on above: Performed By: #### C BCO ####[address] [address] MCHC mass conc (RBC) 34.8 G/dL Normal 31.8-35.4 [facility] Comment on above: Performed By: #### C BCO ####[address] [address] MCV 88.4 fL Normal 80.0-94.0 [facility] Comment on above: Performed By: #### C BCO ####Chuck [address] [address] Monocytes 0.50 10 3/mcL Normal 0.15-1.00 [facility] Comment on above: Performed By: #### C BCO ####Chuck [address] [address] Monocytes/100 leukocytes 8.7 % Normal 1.7-13.0 [facility] Comment on above: Performed By: #### C BCO ####Chuck [address] [address] Neutrophils 3.80 10 3/mcL Normal 2.85-6.16 [facility] Comment on above: Performed By: #### C BCO ####Chuck [address] [address] Neutrophils/100 WBC Auto (Bld) 63.6 % Normal 37.0-80.0 [facility] Comment on above: Performed By: #### C BCO ####Chuck [address] [address] Platelet mean volume (PMV) 8.3 fL Normal 7.4-10.4 [facility] Comment on above: Performed By: #### C BCO ####Chuck [address] [address] Platelets 212 10 3/mcL Normal 130-400 [facility] Comment on above: Performed By: #### C BCO ####Chuck [address] [address] WBC (Leukocytes) 6.10 10 3/mcL Normal 4.60-10.80 [facility] Comment on above: Performed By: #### C BCO ####[address] [address] Vital Signs Date Time Vital Sign Value Performing Clinician Facility 08-26-2023 09:25-0500 Body height 187.96 cm ENGINEERING SUPERVISOR-C Grazyna iSngh ENGINEERING SUPERVISOR Work Phone: [facility] 08-26-2023 09:25-0500 Body mass index (BMI) [Ratio] 28 kg/m2 ENGINEERING SUPERVISOR-C Grazyna Singh ENGINEERING SUPERVISOR Work Phone: [facility] 08-26-2023 09:25-0500 Body weight 98.88 kg ENGINEERING SUPERVISOR-C Grazyna Singh ENGINEERING SUPERVISOR Work Phone: [facility] 03-20-2022 07:34-0400 Diastolic blood pressure 100 mm[Hg] TREVOR NARVAEZ MD [facility] 03-20-2022 07:34-0400 Heart rate 85 /min TREVOR NARVAEZ MD [facility] 03-20-2022 07:34-0400 Respiratory rate 16 /min TREVOR NARVAEZ MD [facility] 03-20-2022 07:34-0400 Systolic blood pressure 136 mm[Hg] TERVOR NARVAEZ MD [facility] 03-20-2022 07:17-0400 Body height 188 cm TREVOR NARVAEZ MD [facility] 03-20-2022 07:17-0400 Body weight 100 kg TREVOR NARVAEZ MD [facility] 03-20-2022 07:15-0400 Body temperature 97.7 [degF] TREVOR NARVAEZ MD [facility] 03-20-2022 07:15-0400 Diastolic blood pressure 100 mm[Hg] TREVOR NARVAEZ MD [facility] 03-20-2022 07:15-0400 Heart rate 77 /min TREVOR NARVAEZ MD [facility] 03-20-2022 07:15-0400 Respiratory rate 16 /min TREVOR NARVAEZ MD [facility] 03-20-2022 07:15-0400 Systolic blood pressure 124 mm[Hg] TREVOR NARVAEZ MD [facility] 03-20-2022 07:10-0400 Body height 188 cm TREVOR NARVAEZ MD [facility] 03-20-2022 07:10-0400 Body temperature 98.06 [degF] TREVOR NARVAEZ MD [facility] 03-20-2022 07:10-0400 Body weight 103.5 kg TREVOR NARVAEZ MD [facility] 03-20-2022 07:10-0400 Diastolic blood pressure 71 mm[Hg] TREVOR NARVAEZ MD [facility] 03-20-2022 07:10-0400 Heart rate 87 /min TREVOR NARVAEZ MD [facility] 03-20-2022 07:10-0400 Respiratory rate 16 /min TREVOR NARVAEZ MD [facility] 03-20-2022 07:10-0400 Systolic blood pressure 101 mm[Hg] TREVOR NARVAEZ MD [facility] NEGATED: Highlighted [id number] 13:53-0400 BMI (Body Mass Index) 28.35 kg/m2 [facility] Work Phone: NEGATED: Highlighted [id number] 13:53-0400 Body weight 99.79 kg [facility] Work Phone: NEGATED: Highlighted [id number] 13:53-0400 Body [facility] Work Phone: NEGATED: Highlighted [id number] 13:53-0400 Heart rate 2+ [facility] Work Phone: NEGATED: Highlighted [id number] 13:53-0400 Height 187.96 cm [facility] Work Phone: NEGATED: Highlighted [id number] 13:53-0400 Height 188 cm [facility] Work Phone: Encounters Encounter Date Encounter Type Care Provider Facility Start: 06-11-2025 ambulatory Grazyna Singh NP Facil ity:[facility] Start: 03-11-2025 End: 03-11-2025 ambulatory Grazyna Singh ENGINEERING SUPERVISOR-C Work Phone: -Laboratory [facility] Start: 03-11-2025 End: 03-11-[address] Ramon Coon MD -Laboratory [facility] Start: 03-11-2025 End: 03-11-2025 ambulatory Grazyna Singh NP Facility:[facility] Start: 12-14-2024 Encounter for genera l adult medical examination without abnormal findings Ramon Coon [facility] Start: 12-09-2024 End: 12-09-2024 ambulatory Grazyna Singh ENGINEERING SUPERVISOR-C Work Phone: [facility] Work Phone: Start: 12-09-2024 End: 12-09-[address] Ramon Coon MD -Laboratory, [facility] Start: 12-09-2024 End: 12-09-2024 ambulatory Ramon Coon Facility:[facility] Start: 11-22-2023 ambulatory GRAZYNA SINGH APRN-CHISEL WORKER Facility:B Start: 09-23-2023 End: 09-23-2023 Patient encounter procedure ENGINEERING SUPERVISOR-C Grazyna Singh ENGINEERING SUPERVISOR Work Phone: [facility] Work Phone: Start: 09-21-2023 End: 09-21-2023 ambulatory ENGINEERING SUPERVISOR-C Grazyna Singh ENGINEERING SUPERVISOR Work Phone: [facility] Work Phone: Start: 09-21-2023 End: 09-21-2023 Patient encounter procedure ENGINEERING SUPERVISOR-C Grazyna Singh ENGINEERING SUPERVISOR Work Phone: [facility] Work Phone: Start: 08-26-2023 End: 08-26-2023 Patient encounter procedure ENGINEERING SUPERVISOR-C Grazyna Singh ENGINEERING SUPERVISOR Work Phone: [facility] Work Phone: Start: 10-13-2022 End: 10-13-2022 ambulatory [facility] Work Phone: Start: 10-13-2022 End: 10-13-2022 Patient encounter procedure [facility] Start: 07-17-2022 End: 07-17-2022 ambulatory [facility] Work Phone: Start: 07-17-2022 End: 07-17-2022 Patient encounter procedure [facility] Start: 04-17-2022 End: 04-17-2022 Patient encounter procedure TREVOR NARVAEZ MD [facility] Start: 03-20-2022 End: 03-20-2022 Minor Procedure TREVOR NARVAEZ MD [facility] Start: 03-06-2022 End: 03-06-2022 Patient encounter procedure TREVOR NARVAEZ MD [facility] Start: 11-10-2021 End: 11-10-2021 Patient encounter procedure SADE AREVALO MD [facility] Start: 08-11-2021 End: 08-11-2021 Patient encounter procedure GRAZYNA SINGH CAMP NURSE-CHISEL WORKER [facility] Start: 08-08-2021 End: 08-08-2021 Patient encounter procedure GRAZYNA SINGH CAMP NURSE-CHISEL WORKER [facility] Start: 08-07-2021 End: 08-07-2021 Patient encounter procedure GRAZYNA SINGH CAMP NURSE-CHISEL WORKER [facility] Start: 08-02-2021 End: 08-02-2021 Patient encounter procedure GRAZYNA SINGH CAMP NURSE-CHISEL WORKER [facility] Start: 07-14-2021 End: 07-14-2021 Patient encounter procedure LOTTIE CHATTERJEE CAMP NURSE-CHISEL WORKER [facility] Start: 04-22-2020 End: 04-22-2020 Patient encounter procedure Alexandro Garcia MD Work Phone: [facility] Work Phone: Start: 03-21-2017 Ambulatory JOSE GAMBINO Facility:[facility] Start: 03-13-2017 End: 03-14-2017 Ambulatory JOSE GAMBINO Facility:[facility] Procedures Date Procedure Procedure Detail Performing Clinician Start: 09-21-2023 MRI of lumbar spine ENGINEERING SUPERVISOR- C Grazyna Singh NP Work Phone: Start: 08-26-2023 X-ray of lumbar spin e, two or three views ENGINEERING SUPERVISOR-C Grazyna Singh ENGINEERING SUPERVISOR Work Phone: Start: 10-13-2022 MRI of lumbar spine Start: 07-17-2022 X-ray of lumbar spin e, two or three views Start: 03-20-2022 PM Intercostal Nerve Block - Single SN 1 TREVOR NARVAEZ MD Comment on above: auto-populated from documented surgical case Start: 07-05-2020 History of left hip replacement LOTTIE CHATTERJEE CAMP NURSE-CHISEL WORKER Start: 04-22-2020 End: 04-22-2020 Blood pressure screening not performed - reason not given Alexandro Garcia MD Work Phone: Start: 04-22-2020 End: 04-22-2020 BMI documented as above normal parameters - follow-up documented Alexandro Garcia MD Work Phone: Start: 04-22-2020 End: 04-22-2020 Documentation of current medications Alexandro Garcia MD Work Phone: Start: 04-22-2020 End: 04-22-2020 Osteoarthritis assess Alexandro Garcia MD Work Phone: Start: 04-22-2020 End: 04-22-2020 Pain assessment documented as positive - follow-up documented Alexandro Garcia MD Work Phone: Start: 04-22-2020 End: 04-22-2020 Tobacco non-user Alexandro Garcia MD Work Phone: Start: 04-20-2020 End: 04-20-2020 Documentation of current medications Flor Garcia LPN Start: 09-09-2018 Appendectomy LOTTIE Lebron CAMP NURSE-CHISEL WORKER Start: 09-09-2009 Repair of inguinal hernia LOTTIE CHATTERJEE CAMP NURSE-CHISEL WORKER Comment on above: Right Arthroscopy of shoulder GERRY CHATTERJEE CAMP NURSE-CHISEL WORKER Comment on above: Right Epidural steroid injection LOTTIE CHATTERJEE CAMP NURSE-CHISEL WORKER H/O: surgery H/O hernia repai r( Confirmed ) LOTTIE CHATTERJEE CAMP NURSE-CHISEL WORKER Repair of inguinal hernia LOTTIE CHATTERJEE CAMP NURSE-CHISEL WORKER Comment on above: Left Shoulder region structure (body structure) LOTTIE CHATTERJEE CAMP NURSE-CHISEL WORKER Comment on above: Right NEGATED: Highlighted rowStart: 04-22-2020 End: 04-22-2020 Documentation of current medications Flor Garcia LPN Plan of Treatment Date Care Activity Detail Author Start: 09-23-2023 Patient referral [facility] Work Phone: Start: 04-22-2020 End: 04-22-2020 Appointment Appointment [facility] Work Phone: Patient referral [place] Work Phone: Immunizations Immunization Date Immunization Notes Care Provider Fa cilirosalba 01-23-2021 SARS-CoV-2 (COVID-19 ) mRNA-1273 vaccine TREVOR NARVAEZ MD [facility] Comment on above: Result Comment: 2021: TPV40 12-26-2020 SARS-CoV-2 (COVID-19 ) mRNA-1273 vaccine TREVOR NARVAEZ MD [facility] Comment on above: Result Comment: 2021: TPV40 02-04-2017 tetanus toxoid, redu nicole diphtheria toxoid, and acellular pertussis vaccine, adsorbed [facility] NURSE-CHISEL WORKER [facility] Payers Date Payer Category Payer Self-pay [id number] 2023 Unknown [id number] 2016 Private Health Insurance [id number] 1975 Unknown [id number] Unknown LANETTE [id number] Unknown [id number] [id number] Unknown [id number] Unknown [id number] [id number] Social History Date Type Detail Facility Start: 08-12-2013 End: 10-10-2023 Assertion Unknown if ever smoked [facility] Work Phone: Start: 02-09-2020 Never smoked t obacco (finding) [facility] Start: 1975 Sex Assigned At Male A [facility] Start: 12-14-2024 Sex Male (finding) [facility] Functional Status Date Assessment Result Facility 03-20-2022 Functional Status Awake [facility] Mental Status Date Assessment Result Facility 03-20-2022 Mental Status Orientation Asse ssment Oriented x 4 [facility] Clinical Notes 07-14-2021 to 03-20-2022 RadiologyRadiologyRadiologyRadiologyRadiologyRadiologyRadiologyRadiology Note Date & Type Note Facility 03-20-2022 History and physical note Date of Service 03/20/22 History and Physical Update I have examined the patient; reviewed the History and Physical and there are no changes to the History and Physical unless noted below. Digitally Signed by TREVOR NARVAEZ MD on 03/20/2022 07:31 AM [facility] 11-07-2021 Evaluation + Plan note Future Scheduled TestsNM Hepatobiliary Duct System Imaging 11/07/21XR Ribs 2 Views Left/PA Chest (AO) 07/14/21 [facility] 08-02-2021 Evaluation + Plan note Future Scheduled TestsNM Hepatobiliary Duct System Imaging 08/02/21NM Myocardial Spect Rest/Stress 08/01/21XR Ribs 2 Views Left/PA Chest (AO) 07/14/21 [facility] 07-14-2021 Evaluation + Plan note Future Scheduled TestsXR Ribs 2 Views Left/PA Chest (AO) 07/14/21 [facility] Evaluation + Plan note Future Appointments Appointment Date:07/31/2021 02:05:00 PM Scheduled Provider:CABRERA METZ DO Location:[facility] [place] Appointment Type:PC OV Future Scheduled TestsXR Ribs 2 Views Left/PA Chest (AO) 07/14/21 [facility] Evaluation + Plan note Future Appointments Appointment Date:08/08/2021 08:45:00 AM Scheduled Provider: Location:[facility] Appointment Type:NM Myocardial Spect Rest/Stress (AH/AO) Future Scheduled TestsNM Myocardial Spect Rest/Stress 08/08/21XR Ribs 2 Views Left/PA Chest (AO) 07/14/21 [facility] Evaluation + Plan note Future Appointments Appointment Date:08/09/2021 10:15:00 AM Scheduled Provider:MELANY MORE JR, MD Location: [place] Appointment Type: ENGINEERING SUPERVISOR Future Scheduled TestsXR Ribs 2 Views Left/PA Chest (AO) 07/14/21 [facility] Evaluation + Plan note Future Appointments Appointment Date:08/21/2021 02:15:00 PM Scheduled Provider:GRAZYNA SINGH Location:[facility] Appointment Type:PC OV Future Scheduled TestsXR Ribs 2 Views Left/PA Chest (AO) 07/14/21 [facility] Evaluation + Plan note Future Appointments Appointment Date:04/18/2022 08:00:00 AM Scheduled Provider:PERNELL REYNAGA Location:[facility] PM Appointment Type:PM OV Future Scheduled TestsXR Ribs 2 Views Left/PA Chest (AO) 07/14/21 [facility] Evaluation note No assessment inform ation available [facility] Work Phone: Evaluation note Diagnosis Onset Date DDD (degenerative disc disease), lumbar acute Degenerative disc disease at L5-S1 level acute Radicular pain of lumbosacral region acute Lumbosacral radiculopathy at L5 acute Sacro-iliac pain acute [facility] Work Phone: Hospital course Narrative No data available for this section [facility] Hospital Discharge instructions No data available for this section [facility] Hospital Discharge instructionsAmbulatory Orders* Pain Management Location: None Selected [facility] Work Phone: Progress note No data available for this section [facility] Reason for referral (narrative)No reason for referral information [facility] Work Phone: Summary Purpose Family History No Family History Records FoundThere may be information available, but it has not been provided by the sender.No Family History Records FoundNo Family History Records Found Advance Directives No Advanced Directives Records Found Advance Directive Response Recorded Date/ Time Living Will No August 12 9:41pm Power of Shovel Engineer No August 12, 2013 9:41pm Chief Complaint Chief Complaint Description Start Date [...] has not been provided by the sender. Chief Complaint and Reason for Visit Chief Complaint DEGENERATION Chief Complaint DEGENERATION Radiculopathy, lumbar region Chief Complaint LUMBAR SPINE RM 2 LUMBAR PAIN LUMBAR SPINE Reason for Visit DDD (degenerative di sc disease), lumbar Degenerative disc disease at L5-S1 level Radicular pain of lumbosacral region Lumbosacral radiculopathy at L5 Sacro-iliac pain Additional Source Comments (unrecognized sect ion and content) No Status Records FoundNo Status Records FoundNo Status Records Found INFORMATION SOURCE (unrecogn ized section and content) DATE CREATED AUTHOR 03/05/2018 [facility] [facility] [facility] [employer] DATE CREATED AUTHOR AUTHOR'S ORGANIZ ATION 11/23/2023 [employer] ([place]) DATE CREATED AUTHOR AUTHOR'S ORGANIZ ATION 05/19/2025 [facility] Reason for Visit (unrecogniz ed section and content) Reason For Visit Description New/Est - 1st visit with physician 04/22 Preliminary reason f or visit data, not yet signed by the author as of left hip pain Care Team (unrecognized sect ion and content) Care Team Personnel Name: GRAZYNA SINGH Position: P4 Advanced Practice Nurse Med Service: Active Provider Member Role: Primary Care Physician Address: Address: [address] [place] [address] Care Team Related Persons Name: NONE, Name: TAHMINA CARLISLE Address: [facility] Address: Home [address] [place] [phone] [place] Name: GURINDER CARLISLE Address: Home [address] [place] [phone] [place] Care Team Personnel Name: GRAZYNA SINGH Position: P4 Advanced Practice Nurse Med Service: Active Provider Member Role: Primary Care Physician Address: Address: [address] [place], [place] [id number] [place] [address] Care Team Related Persons Name: NONE, Name: TAHMINA CARLISLE Address: [facility] Address: Home [address] [place] [phone] [place] Name: GURINDER CARLISLE Address: [address] [phone] [place] Care Team Personnel Name: GRAZYNA SINGH Position: P4 Advanced Practice Nurse Med Service: Active Provider Member Role: Primary Care Physician Address: Address: [address] [place] [address] Care Team Related Persons Name: NONE, Name: TAHMINA CARLISLE Address: [facility] Address: [address] [phone] [place] Name: GURINDER CARLISLE Address: [address] [phone] [place] Goals (unrecognized section and content) Goals may be documented in a n alternate section Care Teams (unrecognized sec tion and content) Team Status: Active Member Role Status Dates Dr. Jorge Zhao DO Family Provider Active Grazyna Singh ENGINEERING SUPERVISOR, ENGINEERING SUPERVISOR-C Primary Care Provider Active Team Status: Inactive Member Role Status Dates Grazyna Singh ENGINEERING SUPERVISOR, ENGINEERING SUPERVISOR-C Primary Care Provider Active Dr. Tena Ramirez MD Attending Provider, Referring Pr ovider Active Team Status: Inactive Member Role Status Dates Grazyna Singh ENGINEERING SUPERVISOR, ENGINEERING SUPERVISOR-C Primary Care Provider, Referri ng Provider Active Dr. Erick Thorne DO Attending Provider Active Team Status: Inactive Member Role Status Dates Grazyna Singh ENGINEERING SUPERVISOR, ENGINEERING SUPERVISOR-C Primary Care Provider Active Dr. Sonido Elliott MD Attending Provider Active Team Status: Inactive Member Role Status Dates Grazyna Singh ENGINEERING SUPERVISOR, ENGINEERING SUPERVISOR-C Primary Care Provider Active Dr. Erick Thorne DO Attending Provider, Referring P rovider Active Team Status: Inactive Member Role Status Dates Grazyna Singh ENGINEERING SUPERVISOR, ENGINEERING SUPERVISOR-C Primary Care Provider Active Start: December 09, 2024 End: December 09, 2024 Dr. Ramon Coon MD Attending Provider Active Start: December 09, 2024 End: December 09, 2024 Dr. Ramon Coon MD Referring Provider Active Start: December 09, 2024 End: December 09, 2024 Team Status: Active Member Role/Relationship Status Dates Grazyna Singh ENGINEERING SUPERVISOR, ENGINEERING SUPERVISOR-C Primary Care Provider Active Team Status: Inactive Member Role/Relationship Status Dates Grazyna Singh ENGINEERING SUPERVISOR, ENGINEERING SUPERVISOR-C Primary Care Provider Active Start: December 09, 2024 End: December 09, 2024 Dr. Ramon Coon MD Attending Provider Active Start: December 09, 2024 End: December 09, 2024 Dr. Ramon Coon MD Referring Provider Active Start: December 09, 2024 End: December 09, 2024 Team Status: Inactive Member Role/Relationship Status Dates Grazyna Singh ENGINEERING SUPERVISOR, ENGINEERING SUPERVISOR-C Primary Care Provider Active Start: March 11, 2025 End: March 11, 2025 Dr. Ramon Coon MD Attending Provider Active Start: March 11, 2025 End: March 11, 2025 Dr. Ramon Coon MD Referring Provider Active Start: March 11, 2025 End: March 11, 2025 FOR RECORDS PERTAINING TO PATIENTS WHO ARE [...] BE BASED ON THE PRIMARY CLINICAL RECORDS. [facility]. provides no warranty or guarantee of the accuracy or completeness of information in this document.
[2025-06-11] MEDS: Lactated Ringers 1,000 ML 15 ML IV (09:30)
--- NOTE | 2025-06-11 09:51 | H&P.OPEN ---
HPI - General HPI Narrative ULYSSES CARLISLE, is a 50 M who presents for screening colonoscopy. Patient has never had a colonoscopy in the past. He denies abdominal pain or blood in stool. He has family history of colon cancer in his grandfather. COUNT INCLUDES [facility] Medical History Wears glasses Alcohol use Arthritis Back pain Migraine headache Chewing tobacco use Hypertension Home Medications ?Medication ?Instructions ?Recorded ?Last Taken ?Type No Known/Unobtainable [No Known 08/12/13 Unknown History Home Medications] Allergy/AdvReac Type Severity Reaction Status Date / Time No Known Allergies Allergy Verified 06/11/25 09:12 Surgical History History of hip replacement History of hernia repair History of shoulder surgery History of appendectomy Social History Smoking Status: Current every day smoker tobacco type: smokeless tobacco Smokeless tobacco user: snuff and other what type of physical activity do you participate in: walking Past Medical/Surgical History Planned Operation Planned Operative Procedure(s): CSCOPE OA Previous Hospitalizations/Surgeries HX Hospitalizations: No Any Problems With Anesthesia: No You/Your Family Experience Fever (Hyperthermia) With Anes: No Cholinesterase deficiency: No Cardiovascular Hx Hypertension: Yes (NO MED FOR 1 YR) Respiratory Hx Sleep Apnea: No Hx Respiratory Tract Infection/Cold (presently): No Do You Snore Loudly (louder than talking or can be heard): No Do You Often Feel Tired/ Fatigued/ Sleepy Dring Daytime?: No Has Anyone Observed You Stop Breathing During Sleep?: No Result (for STOP score): Negative Smoking Status: Current every day smoker Neurological Does patient have nerve stimulator: No Reproduction : No Miscellaneous Recent Exposure to Contagious Disease: No Allergies No Known Allergies Allergy (Verified 06/11/25 09:12) Discharge Is Pt Admitted From a Care Home, or a Senior Living: No After D/C, Where Do you Plan to Go: Return Home Vital Signs Vital Signs Vital Signs: 06/11/25 09:13 06/11/25 09:13 Temperature 97.2 F L Temperature Source Temporal Pulse Rate 69 Respiratory Rate 16 Respiratory Pattern Normal Blood Pressure 121/96 H Blood Pressure Mean 104 Blood Pressure Source Monitor Blood Pressure Position Semi-Fowlers Blood Pressure Location Left Arm Pulse Ox 99 Oxygen Delivery Method Room Air Weight Weight: 185 lb 3.013 oz Body Mass Index (BMI) 23.8 Physical Exam Const alert and oriented x3 HEENT normocephalic Eyes PERRL Resp normal respiratory effort and normal air movement Cardio regular rate and regular rhythm GI soft to palpation, non-tender and non-distended Extremity normal to inspection Assessment & Plan Assessment/Plan (1) Screen for colon cancer: PLAN: I explained endoscopy in detail to the patient. I explained the risks including but not limited to stroke or heart attack with anesthesia, perforation of the GI tract, bleeding, infection. I explained that any of these could necessitate further emergency surgery. The patient understands and all questions were answered sufficiently. The patient wishes to proceed with procedure. Dakota Simmons MD Pager: [facility] [address] [place] [address], [address] [place] [address] Office: Surgery Risks - Colonoscopy Risks Include but are not Limited To: Risks include but are not limited to: Bleeding, perforation requiring further surgery, inability to complete colonoscopy requiring barium enema.
[2025-06-11] MEDS: Lidocaine 1% (5 ml sdv) 5 ML Vial IV (10:10)
--- NOTE | 2025-06-11 10:23 | OP.COLON_ITS ---
Patient Name: Collin Logan Procedure Date: 06/11/2025 10:01 AM Date of : 1975 Age: 50 Procedure: Colonoscopy Indications: Screening for colorectal malignant neoplasm Providers: Dakota Simmons MD Referring MD: Ramon Coon MD Medicines: Propofol per Anesthesia Patient Profile: This is a 50 year old male. Refer to note in patient chart for documentation of history and physical. Last Colonoscopy: none. The patient's first colonoscopy is today. Complications: No immediate complications. Procedure: Pre-Anesthesia Assessment: - Prior to the procedure, a History and Physical was performed, and patient medications and allergies were reviewed. The patient's tolerance of previous anesthesia was also reviewed. The risks and benefits of the procedure and the sedation options and risks were discussed with the patient. All questions were answered, and informed consent was obtained. Prior Anticoagulants: The patient has taken no anticoagulant or antiplatelet agents. After reviewing the risks and benefits, the patient was deemed in satisfactory condition to undergo the procedure. After I obtained informed consent, the scope was passed under direct vision. Throughout the procedure, the patient's blood pressure, pulse, and oxygen saturations were monitored continuously. The colonoscope was introduced through the anus and advanced to the cecum, identified by appendiceal orifice and ileocecal valve. The colonoscopy was performed without difficulty. The patient tolerated the procedure well. The quality of the bowel preparation was good. The ileocecal valve, appendiceal orifice, and rectum were photographed. Scope In: 10:11:41 AM Scope Withdrawal Time 0 hours 3 minutes 4 seconds Scope Out: 10:20:37 AM Total Procedure Duration Time 0 hours 8 minutes 56 seconds Findings: The entire examined colon appeared normal on direct and retroflexion views. Impression: - The entire examined colon is normal on direct and retroflexion views. - No specimens collected. Recommendation: - Discharge patient to home. - Resume previous diet. - Continue present medications. - Repeat colonoscopy in 10 years for screening purposes. Procedure Code(s): --- Professional --- 72326, Colonoscopy, flexible; diagnostic, including collection of specimen(s) by brushing or washing, when performed (separate procedure) Diagnosis Code(s): --- Professional --- Z12.11, Encounter for screening for malignant neoplasm of colon CPT copyright 2021 [employer]. All rights reserved. The codes documented in this report are preliminary and upon plumbing instructor review may be revised to meet current compliance requirements. Dakota Simmons MD 06/11/2025 10:22:48 AM This report has been signed electronically. Number of Addenda: 0 Note Initiated On: 06/11/2025 10:01 AM
--- NOTE | 2025-06-11 10:23 | OP.PROVAT_ITS ---
06/11/2025 Ramon Coon MD [address] [phone] Re : Colonoscopy procedure for [facility] Dear Dr. Coon This procedure was performed on Wednesday, June 11, 2025. My impressions and recommendations are as follows: Impressions : - The entire examined colon is normal on direct and retroflexion views. - No specimens collected. Recommendations : - Discharge patient to home. - Resume previous diet. - Continue present medications. - Repeat colonoscopy in 10 years for screening purposes. My findings are described in the full procedure note, which is enclosed. If I can be of further assistance, please feel free to contact me at Doctor phone number(s): , Work: . Sincerely, Dakota Simmons MD 06/11/2025 10:22:48 AM This report has been signed electronically.
--- NOTE | 2025-06-11 10:27 | PCM.POST.ANE ---
Anesthesia: Postop Eval I Current Vital Signs Temperature: 97 F Pulse Rate: 69 Blood Pressure: 111/74 Respiratory Rate: 16 Pulse Ox: 98 Oxygen Delivery Method: Room Air Assessment Airway patent: Yes Spontaneous unlabored respirations: Yes Mental status: Asleep nausea: No Vomiting: No Anesthesia Complication: No Fluid Hydration Crystalloid volume administer (ml): 300 Total IV fluid infused: 300 Progress Note Anesthesia document: Postop Eval 1 completed: Yes
--- NOTE | 2025-06-11 10:38 | POSTOPAN2_ITS ---
Anesthesia Postop Eval I Sum Postop Eval Completion status Anesthesia document: Postop Eval 1 completed: Yes Anesthesia Postop Eval I Summary Anesthesia Postop Eval I Summary: Anesthesia Postop Eval I: Assessment Summary Airway patent Yes 06/11/25 10:28 [email or web address] Spontaneous unlabored Yes 06/11/25 10:28 BARREL [email or web address] respirations Mental status Asleep 06/11/25 10:28 [email or web address] [email or web address] nausea No 06/11/25 10:28 BARREL [email or web address] Vomiting No 06/11/25 10:28 BARREL [email or web address] Anesthesia Postop Eval I: Fluid Summary Crystalloid volume administer 300 06/11/25 10:28 BARREL [email or web address] (ml) Colloids volume administered ( ml) Blood Product volume administered (ml) Total IV fluid infused 300 06/11/25 10:28 BARREL [email or web address] Anesthesia Postop Eval I: Summary Notes Anesthesia Complication No 06/11/25 10:28 BARREL [email or web address] Anesthesia Complication Comment: Post-operative progress note Anesthesia: Postop Eval II Evaluation Mental status: Awake Pain Level: 0 nausea: No Vomiting: No
--- NOTE | 2025-06-11 10:38 | PCM.POSTANE2 ---
Anesthesia Postop Eval I Sum Postop Eval Completion status Anesthesia document: Postop Eval 1 completed: Yes Anesthesia Postop Eval I Summary Anesthesia Postop Eval I Summary: Anesthesia Postop Eval I: Assessment Summary Airway patent Yes 06/11/25 10:28 [email or web address] Spontaneous unlabored Yes 06/11/25 10:28 [email or web address] respirations Mental status Asleep 06/11/25 10:28 [email or web address] nausea No 06/11/25 10:28 [email or web address] Vomiting No 06/11/25 10:28 [email or web address] Anesthesia Postop Eval I: Fluid Summary Crystalloid volume administer 300 06/11/25 10:28 [email or web address] (ml) Colloids volume administered ( ml) Blood Product volume administered (ml) Total IV fluid infused 300 06/11/25 10:28 [email or web address] Anesthesia Postop Eval I: Summary Notes Anesthesia Complication No 06/11/25 10:28 [email or web address] Anesthesia Complication Comment: Post-operative progress note Anesthesia: Postop Eval II Evaluation Mental status: Awake Pain Level: 0 nausea: No Vomiting: No
== END 2025-06-11 10:52 | disposition home or self-care (01) ==
LOC: EN 08:36 → AC 08:48
PROVIDERS: PCP Family Medicine; Referring Provider Family Medicine; Visit Provider Surgery
PROC: 0DJD8ZZ Inspection of Lower Intestinal Tract, Via Natural or Artificial Opening Endoscopic (ICD-10-PCS; CPT 45378; principal; 2025-06-11 09:40)
DX: Z12.11 Encounter for screening for malignant neoplasm of colon (principal); I10 Essential (primary) hypertension; Z80.0 Family history of malignant neoplasm of digestive organs; Z96.649 Presence of unspecified artificial hip joint; Z90.49 Acquired absence of other specified parts of digestive tract; F17.220 Nicotine dependence, chewing tobacco, uncomplicated
CPT/HCPCS: 45378